=== PATIENT | male | born 1970 | race Two or more races ===

== ENCOUNTER 2024-11-29 08:48 | Day surgery (SDC) | payer MEDICAID ==
[2024-11-28 12:05] LABS: Hematocrit 46.8 % (41.0-53.0); Hemoglobin 15.8 g/dL (13.5-17.5); Mean Corpuscular Hemoglobin 30.1 pg (28.0-32.0); Mean Corpuscular Volume 89.3 fL (80.0-100.0); Nucleated Red Blood Cells % 0.1 %
[2024-11-28 12:19] LABS: INR 0.95 (0.9-1.15); Partial Thromboplastin Time 25.1 SEC (24.5-34.5); Prothrombin Time 10.1 sec (9.3-11.8)
[2024-11-28 12:30] LABS: Urine Protein, UAD Negative (Negative)
[2024-11-28 12:34] LABS: Albumin 4.7 g/dL (3.2-4.8); Alkaline Phosphatase 75 U/L (46-116); Anion Gap 10 (5-15); BUN/Creatinine Ratio 13.0 (10.0-20.0); Blood Urea Nitrogen 15 mg/dL (9-23); Calcium 9.8 mg/dL (8.7-10.4); Carbon Dioxide 29 mmol/L (20-31); Glucose 92 mg/dL (74-106); Potassium 5.0 mmol/L (3.5-5.1); Total Protein 7.8 g/dL (5.7-8.2)
[2024-11-28 12:35] LABS: Bilirubin, Total 0.5 mg/dL (0.2-1.0)
[2024-11-28 12:36] LABS: Alanine Aminotransferase 61 U/L (7-40); Chloride 109 mmol/L (98-107); Sodium 148 mmol/L (136-145)
[~2024-11-29] VITALS: Ht 185.4 cm; Wt 99.8 kg
[~2024-11-29 08:48] MED LIST: ALL100T PO; MULT1CHW79 PO
[2024-11-29] MEDS ORDERED: ceFAZolin 2 GM/D5W50ml 50 ML IV ONE (09:03)
[2024-11-29] MEDS ORDERED: PROPOFOL 10 MG/ML 20 ML IV ONE (09:58)
[2024-11-29] MEDS ORDERED: MIDAZOLAM HCL 2MG/2ML 2ml VIAL (1mg/ml) ONE (09:58)
[2024-11-29] MEDS ORDERED: MEPERIDINE HCL (25 MG/ML) 1ML VIAL ONE ×2 (09:58→09:59)
[2024-11-29] MEDS ORDERED: fentaNYL CITRATE 100 MCG/2 ML VL ONE (09:58)
[2024-11-29] MEDS: BUPIVACAINE 0.5% P/F INJ 10 ML VIAL ONE (10:23)
[2024-11-29] MEDS: LIDOCAINE W/ EPINEPHRINE 1% 20ML VIAL ONE (10:23)
[2024-11-29] MEDS ORDERED: ACE3T PO (10:55)
[2024-11-29 11:05] VITALS: PULSE 98; RESP 13; TEMP 97.3; O2SAT 94
--- NOTE | 2024-11-29 11:06 | DVHOP ---
DATE OF SURGERY: 11/29/2024 PREOPERATIVE DIAGNOSIS: Umbilical hernia. POSTOPERATIVE DIAGNOSIS: Umbilical hernia. SURGEON: Matt Robledo MD DIVISION CHAIR: Kirby Hogan NP ANESTHESIA: General endotracheal. ANESTHESIOLOGIST: Jose Alberto Chambers MD PROCEDURE: Repair of umbilical hernia. DESCRIPTION OF PROCEDURE: Under general anesthesia with the skin prepped and draped, periumbilical incision was made in a semilunar fashion above the umbilicus and the skin was from a large amount of incarcerated omental fat. This was reduced through the defect. The defect measured approximately 2 cm in diameter. The defect was then excised in terms of the adherent omental tissue and the freshened edges of the defect were approximated using interrupted #1 absorbable sutures. Following closure of the defect, the wound was irrigated, irrigant was aspirated. Subcutaneous tissues and skin were approximated using Monocryl sutures, Dermabond glue, and Steri-Strips. The patient remained stable throughout the procedure and left the operating room following an accurate needle and sponge count. MD REN Akbar/LARS TID: [id number] RECEIPT: [id number]
[2024-11-29] MEDS ORDERED: MIDAZOLAM HCL 2MG/2ML 2ml VIAL (1mg/ml) IV PRN (11:15)
[2024-11-29] MEDS ORDERED: MORPHINE SULFATE 4 MG/ML SYR/VIAL IV PRN (11:15)
[2024-11-29] MEDS ORDERED: ONDANSETRON HCL 4 MG/2 ML VIAL IV PRN (11:15)
[2024-11-29] MEDS ORDERED: hydrALAZINE HCL 20 MG/ML VL IV PRN (11:15)
[2024-11-29] MEDS ORDERED: KETOROLAC TROMETH 30 MG/ML 1ML VIAL IV ONE (11:15)
[2024-11-29] MEDS: HYDROmorphone HCL 2 MG/ML VL/or syr IV PRN (11:25)
[2024-11-29] MEDS ORDERED: HYDROmorphone HCL 2 MG/ML VL/or syr ONE (11:26)
[2024-11-29 12:10] VITALS: BP 129/81; PULSE 74; RESP 15; O2SAT 98
== END 2024-11-29 12:30 | disposition home or self-care (01) ==
LOC: SUR 08:48
PROVIDERS: ATTEND Surgery
DX: K42.0 Umbilical hernia with obstruction, without gangrene (principal); E66.3 Overweight; Z68.29 Body mass index [BMI] 29.0-29.9, adult
CPT/HCPCS: 36415; 49592; 80053; 81001; 85025; 85610; 85730; 86850; 86900; 86901; J0690; J1100; J1171; J2175; J2250; J2704; J3010; J3490

== ENCOUNTER 2024-12-17 09:12 | Emergency (ER) | payer MEDICAID ==
[~2024-12-17] VITALS: Ht 185.4 cm; Wt 105.0 kg
[~2024-12-17 09:12] MED LIST changes: +ACE3T PO
--- NOTE | 2024-12-17 09:33 | ED.PDOC ---
GI ASSESSMENT HPI Comments 54 y/o M, presents to the ED for CC of abdominal pain. Patient states, he has been experiencing periumbilical abdominal pain with diffuse tenderness following, picking up a suitcase yesterday (12/17/24). Patient reports, to have had a recent umbilical hernia repair on 11/29/24. Patient had a follow up appointment on 12/12/24 with , and was determined to have had a successful outcome. Following procedure patient endorses to have symptoms of constipation. Patient denies nausea, vomiting, diarrhea, fever, or chills. Chief Complaint: Abdominal Pain Time Seen by MD: 09:20 Reviewed Notes: Nurses Notes, Medications, Allergies Allergies: Coded Allergies: NO KNOWN ALLERGIES (Unverified , 11/27/24) Home Meds Active Scripts Acetaminophen W/ Codeine (Tylenol W/Cod #3) 1 Tab Tb, 1 TAB PO Q4HP PRN for 10 Days, #50 TAB Prov:[address] [employer] 11/29/24 Reported Medications Multiple Vitamins W/ Minerals (One A Day Mens Vitacraves) 1 Chw Chw, 1 CHW PO DAILY, TAB.CHEW 11/27/24 Allopurinol (ZYLOPRIM TABLET) 100 Mg Tb, 50 MG PO DAILY, TAB 11/27/24 Information Source: Patient Mode of Arrival: Ambulatory Timing: Hours Duration: Since onset Prehospital treatment: None Quality: None Vomitus: None Stool: Impaction Severity: Moderate Recent: Recent Surgery Recent Hx of: None Pain Location: Diffuse Modifying Factors: Nothing Associated sign and symptoms: Constipation, Abdominal Pain Past Medical History PAST MEDICAL HISTORY: Denies Surgical History: Hernia Repair Family History Family History: Family hx of DM Social History Smoker: Non-Smoker Alcohol: Denies ETOH Use Drugs: Denies Drug Use Lives In: Home Constitutional: denies: chills, diaphoresis, fatigue, fever, malaise, sweats, weakness, others EENTM: denies: blurred vision, double vision, ear bleeding, ear discharge, ear drainage, ear pain, ear ringing, eye pain, eye redness, hearing loss, mouth pain, mouth swelling, nasal discharge, nose bleeding, nose congestion, nose pain, photophobia, tearing, throat pain, throat swelling, voice changes, others Respiratory: denies: cough, hemoptysis, orthopnea, SOB at rest, shortness of breath, SOB with excertion, stridor, wheezing, others Cardiovascular: denies: chest pain, dizzy spells, diaphoresis, Dyspnea on exertion, edema, irregular heart beat, left arm pain, lightheadedness, palpitations, PND, syncope, others Gastrointestinal: reports: abdominal pain, constipated; denies: abdomen distended, blood streaked bowels, diarrhea, dysphagia, difficulty swallowing, hematemesis, melena, nausea, poor appetite, poor fluid intake, rectal bleeding, rectal pain, vomiting, others Genitourinary: denies: burning, dysuria, flank pain, frequency, hematuria, incontinence, penile discharge, penile sore, pain, testicle pain, testicle swelling, urgency, others Neurological: denies: dizziness, fainting, headache, left sided numbness, left sided weakness, numbness, paresthesia, pre-existing deficit, right sided numbness, right sided weakness, seizure, speech problems, tingling, tremors, weakness, others Musculoskeletal: denies: back pain, gout, joint pain, joint swelling, muscle pain, muscle stiffness, neck pain, others Integumetry: denies: bruises, change in color, change in hair/nails, dryness, laceration, lesions, lumps, rash, wounds, others Allergic/Immunocompromised: denies: Difficulty Healing, Frequent Infections, Hives, Itching, others Hematologic/Lymphatic: denies: anemia, blood clots, easy bleeding, easy bruising, swollen glands, others Endocrine: denies: excessive hunger, excessive sweating, excessive thirst, excessive urination, flushing, intolerance to cold, intolerance to heat, unexplained weight gain, unexplained weight loss, others Psychiatric: denies: anxiety, bipolar disorder, depression, hopeless, panic disorder, schizophrenia, sleepless, suicidal, others All Other Systems: Reviewed and Negative Physical Exam General Appearance: No Apparent Distress HEENT: Normal ENT Inspection, Pharynx Normal, TMs Normal Neck: Full Range of Motion, Non-Tender, Normal, Normal Inspection Respiratory: Chest Non-Tender, Lungs Clear, No Accessory Muscle Use, No Resp iratory Distress, Normal Breath Sounds Cardiovascular: No Edema, No JVD, No Murmur, No Gallop, Normal Peripheral Pulses, Regular Rate/Rhythm Breast Exam: Deferred Gastrointestinal: No Organomegaly, Non Tender, No Pulsatile Mass, Normal Bowel Sounds, Soft Genitalia: Deferred Pelvic: Deferred Rectal: Deferred Extremities: No calf tenderness, Normal capillary refill, Normal inspection, Normal range of motion, Non-tender, No pedal edema Musculoskeletal : Apperance: Normal Neurologic: Alert, gas torch brazier II-XII nml as Tested, No Motor Deficits, Normal Affect, Normal Mood, No Sensory Deficits Cerebellar Function: Normal Reflexes: Normal Skin: Dry, Normal Color, Warm Lymphatic: No Adenopathy Was a procedure done? Was a procedure done?: No GI differential Dx Differential Diagnosis: Bowel Obstruction, Constipation, Hernia X-Ray, Labs, Meds, VS Vital Signs Date Time Temp Pulse Resp B/P (MAP) Pulse Ox O2 Delivery O2 Flow Rate FiO2 12/17/24 12:00 72 18 128/77 (94) 96 12/17/24 10:16 98.3 78 18 133/81 (98) 98 98.3 12/17/24 09:13 98.0 97 16 141/67 99 98.0 Lab Test 12/17/24 10:55 12/17/24 09:33 Range/Units White Blood Count 6.7 4.4-10.8 10^3/uL Red Blood Count 5.13 4.5-5.90 10^6/uL Hemoglobin 15.5 13.5-17.5 g/dL Hematocrit 45.6 41.0-53.0 % Mean Corpuscular Volume 88.9 80.0-100.0 fL Mean Corpuscular Hemoglobin 30.3 28.0-32.0 pg Mean Corpuscular Hemoglobin Concent 34.0 32.0-36.0 g/dL Red Cell Distribution Width 13.3 11.8-14.3 % Platelet Count 284 140-450 10^3/uL Mean Platelet Volume 7.6 6.9-10.8 fL Neutrophils (%) (Auto) 55.5 37.0-80.0 % Lymphocytes (%) (Auto) 31.3 10.0-50.0 % Monocytes (%) (Auto) 9.8 0.0-12.0 % Eosinophils (%) (Auto) 2.5 0.0-7.0 % Basophils (%) (Auto) 0.9 0.0-2.0 % Neutrophils # (Auto) 3.7 1.6-8.6 10 ^3/uL Lymphocytes # (Auto) 2.1 0.4-5.4 10 ^3/uL Monocytes # (Auto) 0.7 0-1.3 10 ^3/uL Eosinophils # (Auto) 0.2 0-0.8 10 ^3/uL Basophils # (Auto) 0.1 0-0.2 10 ^3/uL Nucleated Red Blood Cells 0.1 % Sodium Level 143 136-145 mmol/L Potassium Level 4.2 3.5-5.1 mmol/L Chloride Level 106 98-107 mmol/L Carbon Dioxide Level 28 20-31 mmol/L Anion Gap 9 5-15 Blood Urea Nitrogen 15 9-23 mg/dL Creatinine 0.94 0.700-1.30 mg/dL Glomerular Filtration Rate Calc 96 >90 mL/min BUN/Creatinine Ratio 16.0 10.0-20.0 Serum Glucose 91 74-106 mg/dL Calcium Level 9.8 8.7-10.4 mg/dL Lipase 96 H 12-53 U/L CT Abd Pel shows: IMPRESSION: 1. Soft tissue thickening at the level of the umbilicus both within the abdominal wall and subjacent to the abdominal wall anterior to the peritoneal lining which could be postoperative in nature given reported hernia surgery or inflammatory. No well-formed fluid collection or soft tissue gas. Correlate with timing of surgery. 2. Mild hepatomegaly with diffuse hepatic steatosis. 3. A higher than simple fluid density exophytic lesion off the upper pole left kidney could reflect a hemorrhagic or proteinaceous cyst although not optimally evaluated. Consider obtaining renal ultrasound on a nonemergent / outpatient basis for characterization if clinically indicated. 4. Mild colonic diverticulosis. At this time, the CBC is within normal limits The chemistry panel is within normal limits The lipase is 96 At this time, the patient can be discharged It does not seem that the patient has an abscess or any other abnormalities. The patient is discharged Images Reviewed?: Images reviewed and evaluated by me Time of 1ST Reevaluation: 09:50 Reevaluation 1ST: Unchanged Patient Education/Counseling: Diagnosis, Treatment, Prognosis, Need For Follow Up Family Education/Counseling: No Family Present SEPSIS Sepsis Screen Date sepsis recognized/suspect: Dec 17, 2024 Time Sepsis recognized/suspect: 912 Recent Procedure: No On Antibiotic Therapy: No Respiratory Rate >20: No Heart Rate >90: Yes Temp<36 C (96.8 F) or >38.3 C: No SBP <90 or MAP <65 mmHG: No New Acute Mental Status Change: No Is the patient on CPAP, BIPAP,: No Physician Orders Urinalysis (12/17/24 09:23) Ct Ab Pel With Iv Con Only (12/17/24 09:23) Heplock Iv (12/17/24 09:23) Vital Signs Date Time Temp Pulse Resp B/P (MAP) Pulse Ox O2 Delivery O2 Flow Rate FiO2 12/17/24 12:00 72 18 128/77 (94) 96 12/17/24 10:16 98.3 78 18 133/81 (98) 98 98.3 12/17/24 09:13 98.0 97 16 141/67 99 98.0 Laboratory Tests Test 12/17/24 10:55 White Blood Count 6.7 10^3/uL (4.4-10.8) Departure 1 Departure Time of Disposition: 14:25 Impression: Primary Impression: Abdominal pain Qualified Codes: R10.9 - Unspecified abdominal pain Additional Impression: Status post hernia repair Disposition: 01 HOME / SELF CARE / HOMELESS Condition: Fair Discharged With: Self Critical Care Note Critical Care Time?: No Stability Stability form required: No Heart Score Heart Score: Heart Score Response (Comments) Value History N/A 0 EKG N/A 0 Age N/A 0 Risk Factors N/A 0 Troponin N/A 0 Total 0 I personally scribed for NICK DOBBS MD ([email or web address]) on 12/17/24 at 09:33. Electronically submitted by Ashley Patton ([email or web address]). I personally scribed for NICK DOBBS MD ([email or web address]) on 12/17/24 at 12:28. Electronically submitted by Ashley Patton [email or web address]). NICK DOBBS MD Dec 17, 2024 09:33
[2024-12-17 09:54] LABS: Anion Gap 9 (5-15); Carbon Dioxide 28 mmol/L (20-31); Chloride 106 mmol/L (98-107); Potassium 4.2 mmol/L (3.5-5.1); Sodium 143 mmol/L (136-145)
[2024-12-17 09:55] LABS: Calcium 9.8 mg/dL (8.7-10.4)
[2024-12-17 10:00] LABS: BUN/Creatinine Ratio 16.0 (10.0-20.0); Blood Urea Nitrogen 15 mg/dL (9-23); Glucose 91 mg/dL (74-106)
[2024-12-17 10:02] LABS: Lipase 96 U/L (12-53)
[2024-12-17] MEDS: IOHEXOL 300 MG/ML 100ML BOTTLE IJ ONE (11:09)
[2024-12-17 11:25] LABS: Hematocrit 45.6 % (41.0-53.0); Hemoglobin 15.5 g/dL (13.5-17.5); Mean Corpuscular Hemoglobin 30.3 pg (28.0-32.0); Mean Corpuscular Volume 88.9 fL (80.0-100.0); Nucleated Red Blood Cells % 0.1 %
--- NOTE | 2024-12-17 12:16 | DVH ---
CLINICAL HISTORY: Abdominal Pain was status post hernia surgery TECHNIQUE: CT of the abdomen and pelvis was performed with intravenous contrast. 100 mL Omnipaque 300 injected This exam was performed according to our departmental dose optimization program. Up-to-date CT equipment and radiation dose reduction techniques are utilized as appropriate. CTDIVol: 23.95 mGy DLP: 1314.44 mGy-cm WID: COMPARISON: None FINDINGS: Lower Thorax: Unremarkable. Liver and Biliary system: Mild hepatomegaly with the right lobe of the liver measuring 18 cm craniocaudal. There is diffuse hepatic steatosis. Major portal veins are patent. The gallbladder is normal caliber. There is no biliary ductal dilatation. Spleen: Unremarkable. Adrenal Glands and Kidneys: Normal adrenal glands. There are bilateral renal hypodensities some of them are too small to characterize though may reflect cysts. There is an exophytic higher than simple fluid density lesion off the upper pole left kidney measuring 2 cm on series 5, image 38. There is no hydronephrosis or nephrolithiasis. Pancreas and Retroperitoneum: Unremarkable. Aorta and Major Vessels: Aortoiliac vessels are patent and normal caliber with trace soft atherosclerotic plaque. Bowel, Mesentery and Peritoneal space: Normal caliber small and large bowel. There is mild colonic diverticulosis. Normal appendix. There is no free intraperitoneal air or loculated fluid collection. Pelvis: Unremarkable. Abdominal wall and Osseous Structures: No destructive osseous lesion. Sclerotic foci in the pelvis are likely bone islands. Minor lower thoracic lumbar spondylosis. There is soft tissue stranding at the level of the umbilicus both within the abdominal wall and subjacent to the abdominal wall, anterior to the peritoneal lining (series 5, image 101). No discrete fluid collection or soft tissue gas. IMPRESSION: 1. Soft tissue thickening at the level of the umbilicus both within the abdominal wall and subjacent to the abdominal wall anterior to the peritoneal lining which could be postoperative in nature given reported hernia surgery or inflammatory. No well-formed fluid collection or soft tissue gas. Correlate with timing of surgery. 2. Mild hepatomegaly with diffuse hepatic steatosis. 3. A higher than simple fluid density exophytic lesion off the upper pole left kidney could reflect a hemorrhagic or proteinaceous cyst although not optimally evaluated. Consider obtaining renal ultrasound on a nonemergent / outpatient basis for characterization if clinically indicated. 4. Mild colonic diverticulosis.
[2024-12-17 14:00] VITALS: BP 140/83; PULSE 96; RESP 18; TEMP 97.9; O2SAT 96
== END 2024-12-17 14:43 | disposition home or self-care (01) ==
LOC: ER 09:12
DX: R10.33 Periumbilical pain (principal); K42.9 Umbilical hernia without obstruction or gangrene; Z98.890 Other specified postprocedural states; Z79.899 Other long term (current) drug therapy
CPT/HCPCS: 36415; 74177; 80048; 83690; 99285; Q9967